=== PATIENT | female | born 1975 | race Caucasian/White ===

== ENCOUNTER 2016-12-09 12:19 | Emergency (ER) | payer OTHER | END 2016-12-09 14:15 | disposition home or self-care (01) | LOC: CED 12:19 → CFTX 12:19 | DX: J06.9 Acute upper respiratory infection, unspecified (principal); J02.9 Acute pharyngitis, unspecified; F17.210 Nicotine dependence, cigarettes, uncomplicated; Z90.49 Acquired absence of other specified parts of digestive tract; Z98.51 Tubal ligation status | CPT/HCPCS: 87651; 99283 ==